=== PATIENT | female | born 1975 ===

== ENCOUNTER 2016-12-23 16:22 | Emergency (ER) | payer SELFPAY ==
[2016-12-23] MEDS ORDERED: KETOROLAC 30 MG/1 ML VIAL IM ONE (16:46)
[2016-12-23 17:06] VITALS: RESP 19; TEMP 96.9
--- NOTE | 2016-12-23 20:42 | PDOC ---
Back Pain / Injury HPI - General Chief Complaint: Neck / Back Complaint Stated Complaint: BACK PAIN Date Seen by Provider: 12/23/16 Time Seen by Provider: 16:30 Source: Patient Exam Limitations: POSITIVE: No limitations Nurse's Notes Reviewed & Considered: Yes - History of Present Illness Initial Comments: The patient is a 41 year old female. Patient has a long-standing, many year history, of low back pain. She's had 2 surgical procedures on her lumbar back in [place]. She has foot drop on the right, which she experienced following one of these procedures. She also has radiculopathy of the left leg. She lives in [place] and is here visiting her mother. She states that she was exiting her mother's house and she caught her right toes on a step and she was descending 3 steps. She states she rolled down 3 steps and has since had an exacerbation of her chronic back pain, left paralumbar area. No new sensory or motor symptoms. She denies any other trauma. Body Location Affected: REPORTS: Back Timing: REPORTS: Abrupt Duration: 1-3 hours Severity: Moderate Quality: REPORTS: "Pain", Sharpness Context: REPORTS: Activity, Turning, Bending, Fall Location at Time of Onset: REPORTS: Other (Mother's house) Modifying Factors: improves with: Nothing Associated Symptoms: REPORTS: Denies symptoms Similar Symptoms Previously: Yes (as above) Recent Care Received: REPORTS: Recently Seen, Treated by MD (As above) Any Prior Injuries Related to Current Complaint?: Yes (as above) - Patient Home Medications Home Medications: Home Medications Albuterol Sulfate [Proair Hfa] 2 puff INH Q6H PRN 12/23/16 Amphet Asp/Amphet/D-Amphet [Adderall 30 mg Tablet] 30 mg PO DAILY 12/23/16 Ketorolac Tromethamine [Toradol] 10 mg PO Q6H PRN #25 tablet 12/23/16 Levothyroxine Sodium [Synthroid] 274 mcg PO DAILY 12/23/16 Naproxen Sodium [Aleve] 660 mg PO Q12H PRN 12/23/16 Oxycodone HCl 10 mg PO Q6H PRN #20 tab 12/23/16 - Patient Allergies Allergies/Adverse Reactions: Allergies Allergy/AdvReac Type Severity Reaction Status Date / Time morphine Allergy Anaphylaxis Verified 12/23/16 16:33 prochlorperazine Allergy NOT Verified 12/23/16 16:33 [From Compazine] APPLICABLE prochlorperazine edisylate Allergy NOT Verified 12/23/16 16:33 [From Compazine] APPLICABLE prochlorperazine maleate Allergy NOT Verified 12/23/16 16:33 [From Compazine] APPLICABLE promethazine HCl Allergy NOT Verified 12/23/16 16:33 [From Phenergan] APPLICABLE Sulfa (Sulfonamide Allergy RASH Verified 12/23/16 16:33 Antibiotics) acetaminophen [From Tylenol] AdvReac ITCHING Verified 12/23/16 16:33 adhesive tape AdvReac NOT Verified 12/23/16 16:33 APPLICABLE Past Medical History - heen HEENT History: Denies History Cardiovascular History: Denies History Respiratory History: Asthma Gastrointestinal History: Denies History Genitourinary History: Denies History Endocrine History: Hypothyroidism Musculoskeletal History: Back Pain, Back Injury, Other (please comment) Prosthesis or Implant: No Additional Musculoskeletal History: RIGHT LEG RADICULOPATHY, RIGHT FOOT DROP, LUMBAR BACK INJURY AND PAIN Neurological History: Denies History Blood Disorders: Denies History Psychiatric History: ADHD History of Sexually Transmitted Diseases: No Female Reproductive History: Other (please comment) Additional Female Reproductive History: POLYCYSTIC OVARIAN SYNDROME Obstetrical History: Denies History Cancer History: Denies History In Past Year Been Physically Harmed or Verbally Threatened: No (PER PATIENT) History of MDRO: No History of Other Communicable Diseases: No Tobacco Use: Never Smoker Alcohol Use: None Substance Use Type: None Previous Surgical History: Yes Type / Date of Surgery: L4-L5 AND L5-S1 BACK SURGERIES Anesthesia Reactions: No Malignant Hyperthermia: No Family History of Malignant Hyperthermia: No Significant Family History: No pertinent family hx Past Medical History Reviewed: Reviewed - No Changes ROS - Limitations ROS Limitations: No Limitations Constitution: REPORTS: Denies Symptoms Cardiovascular: REPORTS: Denies Cardiac Symptoms Respiratory: REPORTS: Denies Resp Symptoms Neurological: REPORTS: Other (Chronic foot drop, right foot; history of left leg radiculopathy) Gastrointestinal: REPORTS: Denies GI Symptoms Endocrine: REPORTS: Denies Symptoms Musculoskeletal: REPORTS: Back Pain (Left paralumbar area), Recent Injury (As above) Genitourinary: REPORTS: Denies Symptoms Eyes: REPORTS: Denies Symptoms ENT: REPORTS: Denies Symptoms Skin: REPORTS: Denies Skin Symptoms Lympathic: REPORTS: Denies Lympathic Symptoms Immunologic: POSITIVE: Denies Symptoms Psychiatric: POSITIVE: Denies Psych Symptoms Back Physical Assessment - General Appearance General Appearance: REPORTS: Alert, Cooperative, No Acute Distress, Other (Obese ) - HEENT HEENT: POSITIVE: Head Inspection Nml, Eyes Inspection Nml, Ears Inspection Nml, Nose Inspection Nml, Oral/Dental Inspect. Nml, Pharynx Inspect. Nml, PERRL, EOMI - Pupil Size Pupil Size: 3 mm: Bilateral (PERRLA) - Neck Neck: POSITIVE: Non Tender, Painless ROM, Trachea Midline, Nexus Criteria Negative - Respiratory / CVS Respiratory / CVS: POSITIVE: Chest Non Tender, No Ecchymosis, Breath Sounds Normal, No Respiratory Distress, Heart Sounds Normal, Regular Rate/Rhythm - Abdomen Abdomen: Soft: (All Quadrants), Normal Bowel Sounds: (All Quadrants), Denies Tenderness: (All Quadrants), No Splenomegaly: (All Quadrants), No Hepatomegaly: (All Quadrants), No Guarding: (All Quadrants), No Rebound: (All Quadrants), No Palpable Pulse: (All Quadrants), No Palpabale Mass: (All Quadrants), No Distention: (All Quadrants), No Rigidity: (All Quadrants) - Back Back: REPORTS: No CVA Tenderness, Limited ROM, See Diagram. DENIES: Non Tender , Painless ROM, No Vertebral Tenderness, Vertebral Pt. 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 NEGATIVE: Motor Normal ( Chronic foot drop, right) Images - Complete Complete: 1 - Area of pain on palpation Back Progress - Patient's Progress Pain Medication Addressed: POSITIVE: Yes (Toradol, 30 mg IM) School/Work Release Addressed: POSITIVE: Not Applicable Re-Examine Time: 16:55 Status: POSITIVE: Unchanged, Re-Examined - Consult Counseled: POSITIVE: Patient, RE: DX, RE: Need for F/U Patient Care Time - Estimated PCT Patient Care Time (In Minutes): 25 Vital Signs - Recent Vital Signs Vital Signs: Vital Signs (Last 8 hours) Temp Pulse Resp BP Pulse Ox 12/23/16 16:22 96.9 F 118 H 19 144/105 97 - VS Reviewed Vital Signs Reviewed: Yes Discharge Clinical Impression: Acute low back pain Discharge Disposition: Discharged to Home Condition: Good Prescriptions / Orders: Oxycodone HCl 10 mg PO Q6H PRN #20 tab PRN Reason: Pain Ketorolac Tromethamine [Toradol] 10 mg PO Q6H PRN #25 tablet PRN Reason: Pain Patient Instructions Given at Discharge: Low Back Strain (ED) Additional Instructions: Rest. Cool compresses to lower back. Toradol, take 2 tablets in 4 hours and then 1 tablet every 4-6 hours as necessary for pain up to a maximum of 4 tablets in 24 hours. Oxycodone, one every 6 hours as necessary for severe pain. Follow-up with your primary care provider in [place]. Return here as necessary. Follow Up With: NONE,NONE [Primary Care Provider] - (Instructions as above. Follow-up with your primary care provider. Return here anytime if condition worsens.)
== END 2016-12-23 17:25 | disposition home or self-care (01) ==
LOC: ER 16:22
DX: M54.5 Low back pain (principal); W10.8XXA Fall (on) (from) other stairs and steps, initial encounter
CPT/HCPCS: 96372; 99282 ×2; J1885

== ENCOUNTER 2017-01-02 08:34 | Emergency (ER) | payer SELFPAY ==
[2017-01-02] MEDS ORDERED: oxyCODONE IR Tab 5 MG TAB PO ONE (09:01)
[2017-01-02 09:54] VITALS: RESP 18; TEMP 97.7
--- NOTE | 2017-01-02 10:38 | PDOC ---
Back Pain / Injury HPI - General Chief Complaint: Neck / Back Complaint Stated Complaint: back pain Date Seen by Provider: 01/02/17 Time Seen by Provider: 08:50 Source: Patient Exam Limitations: POSITIVE: No limitations Nurse's Notes Reviewed & Considered: Yes - History of Present Illness Initial Comments: The patient is a 41-year-old female who presents to the emergency department with low back pain. She states that she has a prior history of discectomy surgery 2 in the lumbar region, the last surgery having been in 2008 in [place]. She states that she has some chronic issues with right foot drop and paresthesias in her right leg related to her previous injuries and surgery. She apparently tripped because of her foot drop and fell at the top of some stairs on December 23. She was evaluated here in the emergency room at that time. She had been prescribed 20 oxycodone which she has been taking for pain. In addition she was prescribed Toradol which she ran out of on the . She states that she ran out of pain medication a couple of days ago and now has increased pain. She describes pain in the lower lumbar region with radiation of pain down her left leg. She has continued paresthesia to the right thigh and pain in the right lower extremity with associated foot drop. The right sided symptoms are chronic. The pain down her left leg is new. She has been taking Aleve since running out of Toradol however this does not seem to be helping. She denies fevers or chills or recent urinary symptoms. She states that she has had urinary retention in the past related to her back issues. She reports that she was unable to follow-up at the clinic after her last emergency room visit because of scheduling conflicts. - Patient Home Medications Home Medications: Home Medications Albuterol Sulfate [Proair Hfa] 2 puff INH Q6H PRN 12/23/16 Amphet Asp/Amphet/D-Amphet [Adderall 30 mg Tablet] 30 mg PO .AM AND NOON Levothyroxine Sodium [Synthroid] 274 mcg PO DAILY 12/23/16 Naproxen Sodium [Aleve] 660 mg PO Q12H PRN 12/23/16 Oxycodone HCl 10 mg PO Q6H PRN #20 tab 12/23/16 Cyclobenzaprine HCl [Flexeril] 10 mg PO TID PRN #20 tab 01/02/17 Sertraline HCl [Zoloft] 150 mg PO DAILY 01/02/17 oxyCODONE ER Tab [OxyCONTIN Tab] 10 mg PO Q6H PRN #10 tab.sr.12h 01/02/17 oxyCODONE IR Tab [OxyIR Tab] 5 - 10 mg PO Q6H #12 tablet 01/02/17 - Patient Allergies Allergies/Adverse Reactions: Allergies Allergy/AdvReac Type Severity Reaction Status Date / Time morphine Allergy Anaphylaxis Verified 01/02/17 08:50 prochlorperazine Allergy PHLEBITIS Verified 01/02/17 08:50 [From Compazine] prochlorperazine edisylate Allergy PHLEBITIS Verified 01/02/17 08:50 [From Compazine] prochlorperazine maleate Allergy PHLEBITIS Verified 01/02/17 08:50 [From Compazine] promethazine HCl Allergy PHLEBITIS Verified 01/02/17 08:50 [From Phenergan] Sulfa (Sulfonamide Allergy RASH Verified 01/02/17 08:50 Antibiotics) acetaminophen [From Tylenol] AdvReac ITCHING Verified 01/02/17 08:50 adhesive tape AdvReac BLISTERS Verified 01/02/17 08:50 Past Medical History - heen HEENT History: Denies History Cardiovascular History: Denies History Respiratory History: Asthma Gastrointestinal History: Denies History Genitourinary History: Denies History Endocrine History: Hypothyroidism Musculoskeletal History: Back Pain, Back Injury, Other (please comment) Prosthesis or Implant: No Additional Musculoskeletal History: RIGHT LEG RADICULOPATHY, RIGHT FOOT DROP, LUMBAR BACK INJURY AND PAIN (L4-5, L5-S1 SURGERY) Neurological History: Denies History Blood Disorders: Denies History Psychiatric History: Anxiety Disorders, ADHD History of Sexually Transmitted Diseases: No Female Reproductive History: Menstrual Problems Additional Female Reproductive History: PCOS LMP: IRREG Cancer History: Denies History In Past Year Been Physically Harmed or Verbally Threatened: No History of MDRO: No History of Other Communicable Diseases: No Tobacco Use: Never Smoker Alcohol Use: Rarely Substance Use Type: None Previous Surgical History: Yes Type / Date of Surgery: L4-L5 AND L5-S1 BACK SURGERIES Anesthesia Reactions: No Malignant Hyperthermia: No Significant Family History: No pertinent family hx Past Medical History Reviewed: Reviewed - No Changes ROS - Limitations ROS Limitations: No Limitations Constitution: DENIES: Chills, Fever Cardiovascular: REPORTS: Denies Cardiac Symptoms Respiratory: REPORTS: Denies Resp Symptoms Genitourinary: DENIES: Dysuria, Difficulty Urinating Back Physical Assessment - General Appearance General Appearance: REPORTS: Alert, Cooperative, No Acute Distress - HEENT HEENT: POSITIVE: Head Inspection Nml - Respiratory / CVS Respiratory / CVS: POSITIVE: Breath Sounds Normal, No Respiratory Distress, Heart Sounds Normal, Regular Rate/Rhythm - Back Back: REPORTS: Other (Examination of her lower back reveals midline scars from previous surgery, there is no erythema or swelling, generalized tenderness to the lower lumbar region) - Skin Skin: REPORTS: Intact, Cyanosis - Extremities Extremity Assessment: Normal ROM: (ALL), Normal Inspection: (ALL) Peripheral Pulses: Dorsalis-pedis (R): 2+, Dorsalis-pedis (L): 2+ - Neurological / Psychological Neuro / Psych: POSITIVE: Oriented X3, Motor Normal, Sensation Normal Reflexes: Patellar (R): 0 (patient reports this is chronic), Patellar (L): 0 ( patient reports this is chronic) Back Progress - Results Reviewed by me Xrays/CTs/US Reviewed: Yes Radiology Findings: X-ray of the lumbar spine reveals degenerative changes L3- S1 with disc space narrowing, no acute fracture or subluxation - Patient's Progress MDM / ED Course: The patient was initially given oxycodone 10 mg by mouth as well as Norflex 60 mg IM for pain. X-ray of the lumbar spine was obtained which reveal some degenerative changes of L3-S1, no acute fracture or subluxation. I did discuss these findings with the patient. I did look the patient up on the [facility] Board of pharmacy prescription monitoring program. She had multiple prescriptions for narcotics from several physicians in [place] in [place] over the past 4-5 months. I did discuss this information with the patient and she stated that those prescriptions were related to previous injuries that she had had. I did discuss with her that this did seem concerning in that it was apparent that she had ongoing pain and pain medication issues. I told her that this would be best treated with a consistent primary care provider. I told her that I would write her a prescription for pain medication that should last for the next couple of days however she would need to obtain further pain management through the clinic. She was also advised that the emergency room would not likely prescribe her any further narcotic pain medication prescriptions regarding this issue. She is advised to contact the clinic tomorrow to arrange for follow-up. In addition because of her new left leg radicular symptoms and recent fall I did write an order for an outpatient MRI which she can also scheduled tomorrow. She is advised to continue Aleve 2 tablets twice a day. In addition she was prescribed Flexeril 10 mg every 8 hours as needed for pain/spasm as well as oxycodone 5 mg #12 which she was prescribed 1-2 every 6 hours as needed for severe pain. She is advised return to the emergency room if any worsening or change in symptoms. She will follow- up as above. - Consult Counseled: POSITIVE: Patient, RE: Lab Results, RE: DX, RE: Need for F/U Patient Care Time - Estimated PCT Patient Care Time (In Minutes): 25 Vital Signs - Recent Vital Signs Vital Signs: Vital Signs (Last 8 hours) Temp Pulse Resp BP Pulse Ox 01/02/17 08:40 97.7 F 82 18 148/90 94 - VS Reviewed Vital Signs Reviewed: Yes Discharge Clinical Impression: Low back pain, Lumbar radiculopathy Condition: Stable Prescriptions / Orders: Cyclobenzaprine HCl [Flexeril] 10 mg PO TID PRN #20 tab PRN Reason: Spasms oxyCODONE ER Tab [OxyCONTIN Tab] 10 mg PO Q6H PRN #10 tab.sr.12h PRN Reason: Pain oxyCODONE IR Tab [OxyIR Tab] 5 - 10 mg PO Q6H #12 tablet Patient Instructions Given at Discharge: Lumbar Radiculopathy (ED), Back Pain ( ED) Additional Instructions: The lower spine, there was some degenerative changes noted in the lower lumbar region. Recommend scheduling an MRI of the lumbar spine as an outpatient to evaluate the new pain radiating down her left leg. Recommend follow-up at the clinic, call tomorrow to arrange follow-up. Continue Aleve 2 tablets twice a day as needed for pain/inflammation. Flexeril 10 mg every 8 hours as needed for pain/spasm. Oxycodone 5 mg 1-2 every 6 hours as needed for severe pain. Return to the emergency room if increased pain, numbness or weakness in her legs , fevers or chills, any worsening or change in symptoms. Follow Up With: NONE,NONE [Primary Care Provider] -
--- NOTE | 2017-01-03 08:47 | DI ---
XR L-SPINE 2-3 VW,01/02/2017 9:01 AM: Clinical History: Fall with low back pain Previous Exam: None at this facility. Findings: AP and lateral views of the lumbar spine are obtained, and demonstrate grade 1 anterolisthesis of L5 on S1. There is loss of intervertebral disc height at multiple levels. A nonobstructive bowel gas pattern is seen. There are no pathologic calcifications. 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
== END 2017-01-02 10:29 | disposition home or self-care (01) ==
LOC: ER 08:34
DX: M54.16 Radiculopathy, lumbar region (principal); M54.5 Low back pain
CPT/HCPCS: 72100; 96372; 99283 ×2; J2360